=== PATIENT | male | born 1955 | race Caucasian/White ===

== ENCOUNTER → 2018-01-18 | Outpatient (CLI) | payer BC ==
--- NOTE | 2018-01-18 09:26 | CT ---
CT CHEST FOR PULMONARY EMBOLISM. EXAMINATION TYPE: CT chest angio for PE DATE OF EXAM: 01/18/2018 INDICATION: SOB, fatigue CT DLP: 398.6 mGycm, Automated exposure control for dose reduction was used. CONTRAST: Patient injected with 78cc mL of Omnipaque 350. COMPARISON: NONE TECHNIQUE: CT of the chest is performed on a spiral scan at 2 mm thick sections. Study is performed with intravenous contrast timed for evaluation for pulmonary embolism. This will limit additional po rtions of the evaluation. 3-D MIP images reconstructed by the technologist are reviewed on the compu ter in the coronal and sagittal planes. FINDINGS: No persistent filling defects are evident to suggest an acute pulmonary embolism. No mediastinal or hilar adenopathy enlarged by CT criteria is evident. The ascending aorta diameter at the level of the main pulmonary artery is 3.1 cm. The main pulmonary artery diameter at the bifur cation is 2.7 cm. Lung windows are clear. Limited CT section through the upper abdomen are unremarkable. IMPRESSIONS: 1. No acute pulmonary embolism.
== END | disposition home or self-care (01) ==
LOC: RADCTMAIN 08:49
PROVIDERS: ATTEND Internal Medicine
DX: R79.1 Abnormal coagulation profile (principal)
CPT/HCPCS: 71275; Q9967

== ENCOUNTER → 2025-05-07 | Outpatient (CLI) | payer MEDICARE, BC ==
--- NOTE | 2025-05-07 10:55 | XR ---
EXAMINATION TYPE: XR abdomen 1V, XR pelvis AP view DATE OF EXAM: 05/07/2025 10:37 AM COMPARISON: None CLINICAL INDICATION: Male, 69 years old with history of R10.31 RIGHT LOWER QUADRANT PAIN; PHH, pain FINDINGS: ABDOMEN: Lung bases are clear. No dilated small bowel loops. Moderate overall stool burden with gassy colon. L aminectomy change mid to lower lumbar spine with degenerative disc disease. Pelvis: SI joints appear symmetric and intact. Pubic symphysis is intact. Left total hip arthroplasty appears intact with gross anatomic alignment. Phlebolith in the right side of the pelvis. IMPRESSION: 1. Abdomen: Moderate stool burden with gassy colon. Nonobstructive bowel gas pattern. 2. Pelvis: Uncomplicated left total hip arthroplasty. No acute osseous abnormality seen. [facility], Workstation: [id number], 05/07/2025 10:53 AM
== END | disposition home or self-care (01) ==
LOC: RADXRMAIN 10:20
PROVIDERS: ATTEND Internal Medicine Gastroenterology
DX: R10.31 Right lower quadrant pain (principal); Z96.642 Presence of left artificial hip joint
CPT/HCPCS: 72170; 74018